=== PATIENT | male | born 1980 | race African-American/Black ===

== ENCOUNTER 2020-03-15 18:52 | Emergency (ER) | payer OTHER ==
[2020-03-15 19:06] VITALS: BP 155/89; PULSE 117; TEMP 98.5; BMI 32.5
--- OUTSIDE RECORDS SUMMARY | 2020-03-15 19:08 | XMS ---
:1980 Author Organization [facility] Support Name Relationship Address Phone [facility] Unavailable [address] [place] [address] MARK VAIL [address] [place] [address] Re-disclosure Warning The records that you are about to access may contain information from federally- assisted alcohol or drug abuse programs. If such information is present, then the following federally mandated warning applies: This information has been disclosed to you from records protected by federal confidentiality rules (42 CFR part 2). The federal rules prohibit you from making any further disclosure of this information unless further disclosure is expressly permitted by the written consent of the person to whom it pertains or as otherwise permitted by 42 CFR part 2. A general authorization for the release of medical or other information is NOT sufficient for this purpose. The Federal rules restrict any use of the information to criminally investigate or prosecute any alcohol or drug abuse patient.The records that you are about to access may contain highly sensitive health information, the redisclosure of which is protected by Article 27-F of the [facility] Public Health law. If you continue you may haveaccess to information: Regarding HIV / AIDS; Provided by facilities licensed or operated by the [facility] Office of Mental Health; or Provided by the [facility] Office for People With Developmental Disabilities. If such information is present, then the following [facility] mandated warning applies: This information has been disclosed to you from confidential records which are protected by state law. State law prohibits you from making any further disclosure of this information without the specific written consent of the person to whom it pertains, or as otherwise permitted by law. Any unauthorized further disclosure in violation of state law may result in a fine or prison sentence or both. A general authorization for the release of medical or other information is NOT sufficient authorization for further disclosure. Insurance Providers Payer name Policy type / Policy ID Covered Covered alliance party's Policy Plan Coverage type alliance party ID relationship to Narayanan Information narayanan [place] O [id number]
--- NOTE | 2020-03-15 19:25 | PDOC ---
History of Present Illness - General Chief Complaint: Sore Throat Stated Complaint: SORE THROAT Time Seen by Provider: 03/15/20 19:16 History Source: Patient Exam Limitations: No Limitations - History of Present Illness Initial Comments: 03/15/20 19:44 This is a 39-year-old male who comes in complaining of 2 days of a sore throat. Patient denies any fevers. Patient denies any cough, congestion, nausea vomiting or diarrhea. Patient said nobody else that he has been around is sick with similar symptoms. Allergies: as per nursing notes Past Medical History: none Social history: Lives with family. No smoking. No alcohol. No illicit drugs. Surgical history: None General: No fevers or chills, no weakness, no weight loss HEENT: No change in vision. No sore throat,. No ear pain CardioVascular: no chest discomfort. No shortness of breath Respiratory:No cough, or wheezing. Gastrointestinal: no nausea, vomiting, diarrhea or constipation, No rectal bleeding Genitourinary: No dysuria, hematuria, or frequency Musculoskeletal: No joint or muscle pain or swelling Neurologic: No headache, vertigo, dizziness or loss of consciousness Psychiatric: nor depression Skin: No rashes or easy bruising Endocrine: no increased thirst or abnormal weight change Allergic: no skin or latex allergy All other systems reviewed and normal GENERAL: The patient is awake, alert, and fully oriented, in no acute distress. HEENT:Head is normal with no signs of trauma. Eyes: Pupils equal, round and reactive to light, Ears, and Throat are normal. Neck is supple. Pharynx there is erythema with a small amount of exudate on the right tonsil otherwise no evidence of peritonsillar abscess. There is lymphadenopathy on the right side as well. EXTREMITIES:atraumatic, Normal range of motion, no edema. NEUROLOGICAL: Normal speech, normal gait. PSYCH: Normal mood, normal affect. SKIN: Warm, Dry, normal turgor, no rashes or lesions noted. Assessment and plan: Is a 39-year-old male with 2 days of sore throat. Patient has a exudative pharyngitis and a negative rapid strep. Patient started on Zithromax and will follow-up with his primary care doctor. Past History - Medical History Allergies/Adverse Reactions: Allergies Allergy/AdvReac Type Severity Reaction Status Date / Time No Known Allergies Allergy Verified 03/15/20 19:05 Home Medications: Ambulatory Orders Azithromycin 250 mg PO DAILY #4 tablet 03/15/20 COPD: No - Immunization History Immunization Up to Date: Yes - Psycho-Social/Smoking History Smoking History: Never smoked Have you smoked in the past 12 months: No Information on smoking cessation initiated: No - Substance Abuse Hx (Audit-C & DAST Scrn) How often the patient has a drink containing alcohol: Never Score: In Men: 4 or > Positive; In Women: 3 or > Positive: 0 Screen Result (Pos requires Nsg. Audit-10AR): Negative In the last yr the pt used illegal drug/Rx for NonMed reason: No Score: Yes response is considered Positive: 0 Screen Result (Positive result requires Nsg. DAST-10): Negative *Physical Exam - Vital Signs Last Vital Signs Temp Pulse Resp BP Pulse Ox 98.5 F 117 H 18 155/89 99 03/15/20 18:57 03/15/20 18:57 03/15/20 18:57 03/15/20 18:57 03/15/20 18:57 Discharge - Discharge Information Problems reviewed: Yes Clinical Impression/Diagnosis: Exudative pharyngitis Condition: Stable Disposition: HOME - Admission No - Follow up/Referral - Patient Discharge Instructions Additional Instructions: Take azithromycin 1 tablet a day for 4 days. You were given your first dose in the emergency department take your next dose tomorrow evening. Tylenol or Motrin as needed for pain or fevers. Return to the emergency department immediately with ANY new, persistent or worsening symptoms. Continue any medications as previously prescribed by your physician. You should follow up with your primary doctor as soon as possible regarding today's emergency department visit. . Please make sure your doctor reviews the results of your emergency evaluation. Thank you for coming to the Emergency Department today for your care. It was a pleasure to see you today. Please note that your evaluation is INCOMPLETE until you follow-up with your doctor. - Post Discharge Activity Work/Back to School Note: Back to Work
[2020-03-15 19:36] LABS: THROAT:GRP A STREP ANTIGEN Negative (Negative)
[2020-03-15] MEDS ORDERED: AZITHROMYCIN 250 MG TABLET PO ONE (19:45)
[2020-03-15] MEDS ORDERED: AZITHROMYCIN 500 MG TABLET ONE (19:47)
== END 2020-03-15 19:58 | disposition home or self-care (01) ==
LOC: FER 18:52
DX: J02.9 Acute pharyngitis, unspecified (principal)
CPT/HCPCS: 87070; 87880; 99283-25; C9803; U0003